=== PATIENT | male | born 1980 | race Caucasian/White ===

== ENCOUNTER 2018-10-09 13:59 | Emergency (ER) | payer MEDICAID ==
--- NOTE | 2018-10-09 14:12 | EDPHY ---
H & P Time Seen by Provider: 10/09/18 14:06 HPI/ROS: HPI: This is a 37-year-old male who presents with Chief Complaint: Suicidal thoughts Location: psych Quality: Suicidal thoughts and attempt Duration: Several days Signs and Symptoms: no auditory hallucinations, no visual hallucinations, + suicidal ideation with a plan, no homicidal ideation, + paranoia Timing: Acute on chronic Severity: Moderate Context: Patient has a history of borderline personality disorder versus schizoaffective disorder managed by [facility] presents with worsening thoughts over the last few days of suicide in ending his life. He reports that he stayed out in the cold all night with the intention of " freezing to ." He also reports that he has not been taking his Zyprexa that has been prescribed to him for the last 3-4 weeks due to it causing dull aching headache and GI upset. He is not taking in 3-4 days. He has an allergy to Geodon. Modifying Factors: None Comment: ROS: A comprehensive 10 system review of systems is otherwise negative aside from elements mentioned in the history of present illness. MEDICAL/SURGICAL/SOCIAL HISTORY: Medical history: Borderline personality disorder, schizoaffective disorder Surgical history: Denies Social history: Tobacco user. Marijuana user. Family history noncontributory. CONSTITUTIONAL: Rambling, over talkative, untidy, adult white male, awake and alert, no obvious distress HEENT: Atraumatic and normocephalic, PERRL, EOMI. Nares patent; no rhinorrhea; no nasal mucosal edema. Tympanic membranes clear. Oropharynx clear, no exudate and moist pink mucosa. Airway patent. No lymphadenopathy. No meningismus. Cardiovascular: Normal S1/S2, regular rate, regular rhythm, without murmur rub or gallop. PULMONARY/CHEST: Symmetrical and nontender. Clear to auscultation bilaterally. Good air movement. No accessory muscle usage. ABDOMEN: Soft, nondistended, nontender, no rebound, no guarding, no peritoneal signs, no masses or organomegaly. No CVAT. EXTREMITIES: 2/2 pulses, strength 5/5, no deformities, no clubbing, no cyanosis or edema. NEUROLOGICAL: no focal neuro deficits. GCS 15. fast pressured speech pattern. SKIN: Warm and dry, no erythema. no rash. Good capillary refill. PSYCH: Poor eye contact, + flight of ideas, tangential disorganized thought process, fair insight and judgment, no auditory hallucinations, no visual hallucinations, + suicidal ideation with a plan, no homicidal ideation, + paranoia Source: Patient, Family Exam Limitations: No limitations Constitutional: Initial Vital Signs Temperature (C) 36.8 C 10/09/18 14:09 Heart Rate 97 10/09/18 14:09 Respiratory Rate 18 10/09/18 14:09 Blood Pressure 102/75 10/09/18 14:09 O2 Sat (%) 96 10/09/18 14:09 O2 Delivery Mode Room Air Allergies/Adverse Reactions: lamotrigine [From Lamictal] Allergy (Verified 10/09/18 14:22) geodan Allergy (Uncoded 10/09/18 14:09) Home Medications: Medication Instructions Recorded Zyprexa 10/09/18 Medical Decision Making ED Course/Re-evaluation: Vital signs reviewed and stable upon arrival. 1410: Patient has suicidal thoughts with a plan. Placed on M1 hold. Labs and UDS ordered. 1500: Labs reviewed and grossly unremarkable. 1530: Urine drug screen positive for marijuana which is consistent with the history. Medically clear for mental health evaluation. 1705: End of shift. Signed over to Dr. Walker pending mental health evaluation and final disposition. Patient continues to remain calm and cooperative. This patient was seen under the supervision of my secondary supervising physician. I evaluated care for this patient with attending. Discussed this patient with Dr. Walker. Differential Diagnosis: Differential diagnosis includes but is not limited to major depression, anxiety disorder, schizophrenia, bipolar disorder, intoxicant use, suicidal ideation, psychosis, cherelle. - Data Points Laboratory Results: Laboratory Results 10/09/18 14:25 10/09/18 14:25 10/09/18 10/09/18 10/09/18 14:50 14:25 14:25 WBC 6.37 10^3/uL 10^3/uL (3.80-9.50) RBC 4.87 10^6/uL 10^6/uL (4.40-6.38) Hgb 14.7 g/dL g/dL (13.7-17.5) Hct 44.1 % % (40.0-51.0) MCV 90.6 fL fL (81.5-99.8) MCH 30.2 pg pg (27.9-34.1) MCHC 33.3 g/dL g/dL (32.4-36.7) RDW 13.0 % % (11.5-15.2) Plt Count 340 10^3/uL 10^3/uL (150-400) MPV 8.9 fL fL (8.7-11.7) Neut % (Auto) 59.7 % % (39.3-74.2) Lymph % (Auto) 27.0 % % (15.0-45.0) Hamblen % (Auto) 10.0 % % (4.5-13.0) Eos % (Auto) 2.8 % % (0.6-7.6) Baso % (Auto) 0.3 % % (0.3-1.7) Nucleat RBC Rel Count 0.0 % % (0.0-0.2) Absolute Neuts (auto) 3.80 10^3/uL 10^3/uL (1.70-6.50) Absolute Lymphs (auto) 1.72 10^3/uL 10^3/uL (1.00-3.00) Absolute Monos (auto) 0.64 10^3/uL 10^3/uL (0.30-0.80) Absolute Eos (auto) 0.18 10^3/uL 10^3/uL (0.03-0.40) Absolute Basos (auto) 0.02 10^3/uL 10^3/uL (0.02-0.10) Absolute Nucleated RBC 0.00 10^3/uL 10^3/uL (0-0.01) Immature Gran % 0.2 % % (0.0-1.1) Immature Gran # 0.01 10^3/uL 10^3/uL (0.00-0.10) Sodium 137 mEq/L mEq/L (135-145) Potassium 4.2 mEq/L mEq/L (3.5-5.2) Chloride 103 mEq/L mEq/L (97-110) Carbon Dioxide 23 mEq/l mEq/l (22-31) Anion Gap 11 mEq/L mEq/L (6-14) BUN 13 mg/dL mg/dL (7-23) Creatinine 1.0 mg/dL mg/dL (0.7-1.3) Estimated GFR > 60 Glucose 87 mg/dL mg/dL (70-100) Calcium 9.9 mg/dL mg/dL (8.5-10.4) Urine Opiates Screen NEGATIVE (NEGATIVE) Urine Barbiturates NEGATIVE (NEGATIVE) Ur Phencyclidine Scrn NEGATIVE (NEGATIVE) Ur Amphetamine Screen NEGATIVE (NEGATIVE) U Benzodiazepines Scrn NEGATIVE (NEGATIVE) Urine Cocaine Screen NEGATIVE (NEGATIVE) U Marijuana (THC) Screen NON-NEGATIVE H (NEGATIVE) Ethyl Alcohol < 10 mg/dL mg/dL (0-10) Departure - Departure Clinical Impression: Planning to commit suicide, Manic behavior Schizoaffective disorder Qualifiers: Schizoaffective disorder type: bipolar Qualified Code(s): F25.0 - Schizoaffective disorder, bipolar type Condition: Fair
[2018-10-09 14:36] LABS: PLATELET COUNT 340 10^3/uL (150-400)
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
--- NOTE | 2018-10-09 17:35 | ASMTTCLDSP ---
TLC Discharge Disposition Disposition: Answers: Transfer Disposition Notes: Notes: In consultation with [facility] ED physician, Lamberto Walker MD and on-call psychiatrist, Franklin Hope MD, both concurred that pt appears to meet 27-65 criteria requiring psychiatric hospitalization as pt appears to be at risk of harm to self due to a mental illness condition. Pt was read the Patient Rights and Responsibilities Statement (placed on chart) and given photocopy of Rights Was patient given the Answers: Not applicable Inpatient Behavioral Health Prohibited Belongings List while in the ED? Type of Hold: Answers: M1/72-hour Hold Hold initiated by: Answers: ED Physician For Transfers, Accepting [place] Facility: For Transfers, Accepting Dr Julito Hoover Psychiatrist: For Transfers, Reason No male beds at [facility] Patient is Being Transferred: Date Signed: 10/09/2018 05:34 PM Electronically Signed By:Denisha Robles
--- NOTE | 2018-10-09 18:08 | ASMTLCPROG ---
Notes Note: Notes: Per [place] request clinicals faxed to [facility], spoke with person at [facility] who requested to fax clinicals Date Signed: 10/09/2018 06:07 PM Electronically Signed By:Keon Singh
[2018-10-09 18:39] VITALS: BP 129/90
== END 2018-10-09 19:10 ==
DX: F25.0 Schizoaffective disorder, bipolar type (principal); R45.851 Suicidal ideations
CPT/HCPCS: 80305; G0480